=== PATIENT | female | born 1975 | race African-American/Black ===

== ENCOUNTER → 2019-05-20 | Outpatient (CLI) | payer OTHER, SELFPAY ==
[2019-05-26 16:34] LABS: Chlamydia By Nucleic Acid AMP Negative; Gonococcus By Nucleic Acid AMP Negative
== END | disposition home or self-care (01) ==
LOC: LABSPEC 16:04
PROVIDERS: Referring Provider Advanced Practice Midwife; Visit Provider Advanced Practice Midwife
DX: Z34.81 Encounter for supervision of other normal pregnancy, first trimester (principal); Z11.3 Encounter for screening for infections with a predominantly sexual mode of transmission
CPT/HCPCS: 87491; 87591; 87623; 87624; 88175; G0145

== ENCOUNTER 2020-04-22 14:33 | Emergency (ER) | payer BC, SELFPAY ==
[2020-04-22 14:38] VITALS: BP 122/81; PULSE 93; RESP 24; TEMP 37.2; O2SAT 100; BMI 21.7
[2020-04-22 14:48] VITALS: BP 130/92; PULSE 73; RESP 12; O2SAT 100
--- NOTE | 2020-04-22 15:01 | US_ITS ---
STUDY: FIRST TRIMESTER OBSTETRICAL ULTRASOUND REASON FOR EXAM: Female, 45 years old bleeding and cramping with -- HCG-2449 -- LMP-01/10/20 LMP: 01/09/2020 TECHNIQUE: Transabdominal and Transvaginal TECHNICAL QUALITY: Adequate. PRIOR ULTRASOUND: None. FINDINGS: There is no demonstrated intrauterine gestational sac. The uterus measures 13.9 x 8.1 x 7.6 cm.. There are multiple uterine fibroids. Diffuse thickening and heterogeneity of the endometrial complex measures 2.6 cm without a focal discrete mass. The cervix is closed. The right ovary measures 2.8 x 3.1 x 1.6 cm. There is no right ovarian cyst. There is no visualized right adnexal mass or complex lesion. The left ovary measures 3.2 x 2.4 x 2.7 cm.. Dominant follicle or small cyst of the left ovary measures 1.2 cm. There is no visualized left adnexal mass or complex lesion. There is no fluid in the cul de sac. US/Transvaginal w/Preg US IMPRESSION: 1. NO intrauterine identified. 2. Diffuse endometrial complex thickening. 3. Multiple uterine fibroids, some of which partially calcified. Electronically Signed: Horacio Shahid MD (Brooks) at 17:08 EST , Service support ,
[2020-04-22 15:09] LABS: Absolute Lymphocyte Count 1.77 X10^3/uL (0.83-4.51); Absolute Neutrophil Count 3.2 X10^3/uL (2.0-7.7); Basophil# 0.01 X10^3/uL; Basophil% 0.2 % (0-1); Eosinophil# 0.07 X10^3/uL; Eosinophils% 1.3 % (0-5); Hematocrit 39.2 % (37-47); Hemoglobin 13.3 g/dL (12.0-15.0); Lymphocyte # 1.77 X10^3/ul (4.0); Lymphocyte % 32.6 % (19-41); Mean Corp Hgb Conc 33.9 g/dL (32-36); Mean Corpuscular Hgb 32.1 pg (27.0-32.0); Mean Corpuscular Volume 94.7 fL (81-99); Mean Platelet Vol. 10.4 fl (6.2-12.0); Monocyte# 0.39 X10^3/uL; Monocyte% 7.2 % (0-10); NRBC Flagged by Analyzer 0 % (0-5); Neutrophil # 3.18 X10^3/uL (2.7-7.7); Neutrophil % 58.5 % (47-70); Platelet Count 258 K/mm3 (150-450); RBC Distribution Width CV 13.1 % (11.6-14.6); RBC Distribution Width SD 44.6 fl (35.1-43.9); Red Blood Count 4.14 M/mm3 (4.2-5.4); White Blood Count 5.4 K/mm3 (4.4-11.0)
[2020-04-22] MEDS: 0.9% Normal Saline 1,000 ML 1000 ML IV (15:11)
--- NOTE | 2020-04-22 15:36 | ED.DCSUM_ITS ---
- ER Visit Summary Date of Service: 04/22/20 Chief Complaint: Vaginal bleeding History of Present Illness: The patient is a 45 F who presents with vaginal bleeding that began today. Patient states she started having some cramping last night. Patient states she is approximately 16 weeks . Patient admits to some brown vaginal discharge. Patient is 3 para 1 with 1 spontaneous in the past. Patient states her pain is localized to her lower abdomen. Patient denies passing any tissue or clots. Patient denies any fevers or chills. Patient states she did have nausea and vomiting during her first trimester but has not had any nausea or vomiting since then. Patient Physical Examination: Vital signs are stable except for mild tachypnea of 24. Patient is afebrile. Oral mucosa is pink and moist. Neck is supple. Trachea is midline. There is no JVD. Heart was regular rate and rhythm. Lungs were clear and equal bilaterally. Abdomen is soft. Bowel sounds are normal. There is lower abdominal tenderness. There is no rebound or guarding noted. Pelvic exam showed large amount of bleeding. There were no masses. There is no tissue noted. Cranial nerves II through XII are intact. There are no focal motor or sensory deficits noted. Test Results: CBC was normal. Urinalysis shows occult blood of 250 with greater than 100 red blood cells. There is no evidence of urinary tract infection. Quantitative hCG was 2449. Transvaginal ultrasound was obtained. There is no intrauterine identified. There is no adnexal mass or complex lesion noted. There is diffuse endometrial thickening and multiple uterine fibroids. These were interpreted by the radiologist and reviewed by myself. Emergency Department Course and Treatment: Patient was given IV fluids and Dilaudid here. Patient is feeling better on reevaluation. Patient is still having some cramping. Patient was given Zofran. Patient wants to go home. Patient was advised of her findings. Patient was instructed to follow-up with her ETCHER HAND in 1 to 2 days for further evaluation. Patient was given a prescription for a short course of [place]. Patient understood and was agreeable with the plan. All questions were answered. Disposition: Discharge home Impression: 1. Spontaneous This note was generated with [employer] software. It may contain incorrect words, spelling, and punctuation that were not noted in review of the chart prior to signing ED Disposition - Plan for ED Patient: Disposition: Home or Assisted Living Diagnosis: Spontaneous Instructions: ED MISCARRIAGE Completed Prescriptions: Hydrocodone Bitart/Apap 5-325 [[place] 5MG-325MG] 1 tab PO Q4H PRN PRN 2 Days #10 tab PRN Reason: Pain Prescription Printed Referrals: Jan Mejia MD [STAFF PHYSICIAN] - 1-2 Days if not improving
[2020-04-22 15:53] LABS: hCG Titer Quant., Serum 2449 mIU/mL (1-3)
[2020-04-22 16:02] LABS: Bacteria 0 SEEN /hpf (None Seen); Mucous, Urine 0 SEEN /hpf (<or=2+)
[2020-04-22 16:04] LABS: Color, Urine Red (Yellow); Glucose, Dipstick Normal (Normal); Ketone-Dipstick 5 mg/dl (Negative); Leukocyte Esterase-Dipstick 100 /ul (Negative); Nitrite-Dipstick Negative (Negative); Occult Blood-Urine 250 /ul (Negative); Protein-Dipstick 100 mg/dl (Negative); Specific Gravity, Urine 1.015 (1.002-1.030); Urine Bilirubin Dipstick Negative (Negative); Urine Clarity Cloudy (Clear); Urine Urobilinogen Normal (Normal)
[2020-04-22 16:20] LABS: Red Blood Cells-Urine > 100 SEEN /hpf (0-5); Squamous Epithelial Cells - UA 0-5 SEEN /hpf (5-10); White Blood Cells 5-10 SEEN /hpf (0-5)
[2020-04-22 16:21] LABS: Amorphous Sediment 1+ PHOS
[2020-04-22 16:48] VITALS: BP 113/79; PULSE 74; RESP 18; O2SAT 98
[2020-04-22 18:02] VITALS: BP 125/85; PULSE 71; RESP 18; O2SAT 98
== END 2020-04-22 18:13 | disposition home or self-care (01) ==
PROVIDERS: Emergency Provider Emergency Medicine
DX: O03.9 Complete or unspecified spontaneous abortion without complication (principal)
CPT/HCPCS: 76817; 81001; 84702; 85025; J7030; A4216; J2405

== ENCOUNTER 2020-04-22 22:25 | Observation (INO) | payer BC, SELFPAY ==
[2020-04-22 14:38] VITALS: BMI 21.7
[2020-04-22 22:25] VITALS: BP 118/82; PULSE 85; RESP 18; TEMP 36.6; O2SAT 96; BMI 21.4
--- NOTE | 2020-04-22 22:34 | ED.DCSUM_ITS ---
History of Present Illness Chief Complaint: Syncope Informant: Patient, EMS Pain: Pelvic Pain Onset: Today Context: Gradual Onset Timing: Waxes and wanes Quality: Cramping Location: Suprapubic Current Severity: Severe Maximum Severity: Severe Worsened by: - - nothing Relieved by: - - eases up after vaginal bleeding Issue: Vaginal bleeding Onset: Today Context: Gradual Onset Current Severity: Similar to period Maximum Severity: Heavy - With large clots Associated Symptoms: Negative for: Dysuria, Frequency, Urgency Last known menstrual period: 01/10/2020 P: 1 Ab: 1 - not including current Narrative: Patient seen here earlier for similar symptoms, she states she has been approximately 16 weeks and started having bleeding and severe cramping today, she had an ultrasound that showed an empty uterus on her exam showed a closed os, without any signs of an ectopic . She felt better and went home, but she states that the bleeding has continued to be heavy and her leather craftsman mping severe, she has had several near syncopal episodes. EMS said that her stated that she had had some syncopal episodes, but the patient denies losing consciousness. She states while in the bathroom she felt dizzy to the point of coming close to passing out several times but then went into her bedroom and went to sleep because she is very tired given the events of today combined with the fact that she has a 3-year-old at home who is keeping her up. She states now, the bleeding seems to be tapering, but she is still having fairly severe cramps. She was nauseated and vomiting once earlier, she denies having any nausea now. The pain is nonlateralizing, throughout her pelvis. She denies any new symptoms other than the above. She had a miscarriage in May of last year. She sees Dr. Mejia for obstetrics, she has yet to see him during this and had an appointment made that is coming up. EMS states upon initial evaluation tonight, her systolic blood pressure was 90. They started an IV and gave her less than half of a liter of IV fluid prior to getting to the hospital and her pressure came up to the 120s. - Past Medical History (1) Uterine fibroids affecting Status: Chronic Past Medical History - Allergies and Home Meds Allergies/Adverse Reactions: Allergies morphine Allergy (Verified 04/22/20 22:29) Bryan Doctors: CONCETTA Mejia Past Medical History: None Lives: With Family Smoking Status: Never smoker Review of Systems General: Reports: Malaise, - - lightheaded off and on to the point of near- syncope. Denies: Chills, Fever, Sweats Eyes: Denies: Visual changes - bilaterally, Diplopia ENT: Denies: Bilateral ear pain, Rhinorrhea, Sore throat Cardiovascular: Denies: Chest pain, Palpitations, Heart racing Respiratory: Denies: Dyspnea, Cough, Dyspnea on exertion Gastrointestinal: Reports: Abdominal pain, Nausea, Vomiting. Denies: Diarrhea, Melena, Hematochezia Genitourinary: Reports: - - Vaginal bleeding. See HPI.. Denies: Dysuria, Hematuria, Frequency Musculoskeletal: Denies: Back pain, Swelling, Extremity Pain Skin: Denies: Rash, Wounds Neurological: Denies: Headache, Weakness, Numbness Physical Exam Vital Signs/Narrative: Vital Signs Temp Pulse Resp BP Pulse Ox 04/22/20 22:25 98 F 85 18 118/82 H 96 Inital Vital Signs reviewed: Yes General: Well nourished, Well developed, - - Keenly alert, moaning in pain Head: Normocephalic, Atraumatic Eyes: Perrl, EOMI ENT: Moist mucous membranes, No rhinorrhea Neck: Supple, Nontender Cardiovascular: Regular rate, Regular rhythm, No murmurs. Negative for: Tachycardia Respiratory: No distress, CTA bilaterally, Chest nontender Abdomen: Soft, Normal bowel sounds, No masses, Tender - Throughout pelvis only nonlateralizing. Negative for: Nondistended - Mildly distended lower abdomen consistent with early second trimester : Speculum exam: - - Patient refuses pelvic and transvaginal ultrasound Back: Nontender, Normal Inspection. Negative for: CVA tenderness Extremities: Nontender, No edema Skin: Normal color, No rash, No Trauma Neurological: Alert, Oriented x3, Cranial nerves II-XII grossly intact, Normal Strength, Normal Sensation, Normal Gait Psychological: Tearful - And anxious Diagnostic/Tx/Re-eval Laboratory Results 04/22/20 04/22/20 04/22/20 22:35 22:35 22:35 WBC 7.7 RBC 3.09 L Hgb 9.9 L Hct 29.4 L MCV 95.1 MCH 32.0 MCHC 33.7 RDW Std Deviation 43.8 RDW Coeff of Renata 12.7 Plt Count 187 MPV 9.6 Immature Gran % (Auto) 0.300 Neut % (Auto) 81.6 H Lymph % (Auto) 14.5 L [place] % (Auto) 3.4 Eos % (Auto) 0.1 Baso % (Auto) 0.1 Absolute Neuts (auto) 6.3 Absolute Lymphs (auto) 1.12 Nucleated RBC % 0 Sodium 139 Potassium 4.5 Chloride 109 H Carbon Dioxide 24.0 Anion Gap 6 BUN 9 Creatinine 0.68 Estim Creat Clear Calc 80.50 Est GFR (MDRD) Af Amer 121 Est GFR (MDRD) Non-Af 100 BUN/Creatinine Ratio 13.2 Glucose 137 H Calcium 8.3 L HCG, Quant 1349 H - Rhythm Strip Rhythm Strip: Sinus Rhythm Rate: 74 Ectopy: None - EKG Initial EKG Interpretation: Sinus Rhythm, No Acute Injury Pattern, Non-Specific ST Changes - T wave flattening inferiorly and laterally - Medical Decision/Diagnostic Studies Patient was treated with IV fluids, IV fentanyl for pain, and she ended up requesting something for nausea so she was given Zofran. She appears better and feels better on reevaluation. She refused pelvic exam and repeat ultrasound, the latter is not required at this time since she had one earlier, it showed heterogeneous material in the uterus without a live present and lack of findings to support an ectopic . Her dropping hCG quantitative supports this, it was around 2400 earlier. Her hemoglobin is down over 3 g, making her hypotensive and explaining her symptoms including near syncopal episodes. Given this I think it is reasonable to observe her overnight, Dr. Diamond is in agreement. He request that Methergine be given which was done here in the ER. ED Disposition - Plan for ED Patient: Disposition: Acute Care Hospital [facility] Diagnosis: Near syncope, Acute blood loss anemia, Vaginal hemorrhage, Complete , Transient hypotension
--- NOTE | 2020-04-22 22:37 | EKG12_ITS ---
Test Reason : CP Blood Pressure : / mmHG Vent. Rate : 074 BPM Atrial Rate : 074 BPM P-R Int : 150 ms QRS Dur : 070 ms QT Int : 400 ms P-R-T Axes : 059 065 049 degrees QTc Int : 444 ms Normal sinus rhythm Nonspecific T wave abnormality Abnormal ECG Confirmed by CHELSIE MEDEROS, GRISEL ([id number]), website/blog editor VALERIY MARTIN ([id number]) on 04/23/2020 10:39:27 AM Referred By: BB Confirmed By:GRISEL HOLGUIN MD
[2020-04-22] MEDS: 0.9% Normal Saline 1,000 ML 1000 ML IV (22:38)
[2020-04-22] MEDS: Ondansetron 4 MG/2 ML Vial IV (22:39)
[2020-04-22] MEDS: fentaNYL 100 MCG/2 ML Ampul 50 MCG IV (22:39)
[2020-04-22 22:53] LABS: Absolute Lymphocyte Count 1.12 X10^3/uL (0.83-4.51); Absolute Neutrophil Count 6.3 X10^3/uL (2.0-7.7); Basophil# 0.01 X10^3/uL; Basophil% 0.1 % (0-1); Eosinophil# 0.01 X10^3/uL; Eosinophils% 0.1 % (0-5); Hematocrit 29.4 % (37-47); Hemoglobin 9.9 g/dL (12.0-15.0); Lymphocyte # 1.12 X10^3/ul (4.0); Lymphocyte % 14.5 % (19-41); Mean Corp Hgb Conc 33.7 g/dL (32-36); Mean Corpuscular Volume 95.1 fL (81-99); Mean Platelet Vol. 9.6 fl (6.2-12.0); Monocyte# 0.26 X10^3/uL; Monocyte% 3.4 % (0-10); NRBC Flagged by Analyzer 0 % (0-5); Neutrophil % 81.6 % (47-70); Platelet Count 187 K/mm3 (150-450); RBC Distribution Width CV 12.7 % (11.6-14.6); RBC Distribution Width SD 43.8 fl (35.1-43.9); Red Blood Count 3.09 M/mm3 (4.2-5.4); White Blood Count 7.7 K/mm3 (4.4-11.0)
[2020-04-22 23:00] VITALS: BP 98/72; PULSE 71; RESP 15; O2SAT 100
[2020-04-22 23:03] LABS: Anion Gap 6 (5-15); BUN 9 mg/dL (7-18); BUN/Creat Ratio 13.2 RATIO (10-20); Calcium,Total 8.3 mg/dL (8.5-10.1); Chloride 109 mmol/L (98-107); Creatinine, Serum 0.68 mg/dL (0.55-1.02); EST Glomerular Filtration Rate 100 mL/min (>60); Est Glom Filt Rate - Afr Amer 121 mL/min (>60); Glucose 137 mg/dL (74-106); Potassium 4.5 mmol/L (3.5-5.1); Sodium Level 139 mmol/L (136-145)
[2020-04-22 23:39] LABS: hCG Titer Quant., Serum 1349 mIU/mL (1-3)
[2020-04-22] MEDS: 0.9% Normal Saline 1,000 ML 100 ML IV (23:51)
[2020-04-23 00:13] VITALS: BP 99/68; PULSE 89; RESP 16; TEMP 36.9; O2SAT 100
[2020-04-23] MEDS: Metoclopramide 10 MG/2 ML Vial 5 MG IV (00:45)
[2020-04-23 01:12] VITALS: BP 101/56; PULSE 68; RESP 16; TEMP 37.2; O2SAT 97
[2020-04-23 01:13] VITALS: PULSE 70; O2SAT 97
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
[2020-04-23 02:04] VITALS: BMI 21.2
--- NOTE | 2020-04-23 02:23 | NURSING ---
Dr Diamond updated on patient arrival to unit from ER. Assessment completed, Fundus firm 2 below, bleeding minimal. Nausea now resolved, Kpad applied to abdomen for mild cramping. Order received to observe patient at this time, Dr Diamond will be in to assess patient this morning. Patient to remain NPO, prn Zofran and tylenol ordered.
--- NOTE | 2020-04-23 03:18 | NURSING ---
Pt verbalizes understanding that she needs to remain NPO until jmiller at bedside to complete his assessment.
[2020-04-23 05:48] VITALS: BP 121/67; PULSE 82; PULSE 92; RESP 16; TEMP 37.4; O2SAT 100
--- NOTE | 2020-04-23 05:52 | HP.PCM_ITS ---
History and Physical Chief complaint: Vaginal bleeding History of present illness: Is a 45-year-old G3, P1 at 15 weeks by LMP with but vaginal bleeding with SAB. Patient originally at home with vaginal bleeding status post fall. Bleeding increased and patient arrived to ER discharge home. Arrived with dizziness and weakness. Also with uterine cramping. Products of conception passed at home and in ER. Denies headache, chest pain, shortness of breath. G1 history: G1: Primary failure to progress G2: SAB 8 weeks G3: Current Past medical history: None Past surgical history: Medications: vitamin Allergies: Morphine (rash) Social history: Denies smoking, alcohol use or drug use Review of systems: Besides the above pertinent positives a full review of systems was performed found to be negative Physical exam: Vital Signs Temp Pulse Resp BP BP Pulse Ox 04/23/20 05:48 99.3 F H 82 16 121/67 H 121/67 H 100 04/23/20 01:13 70 97 04/23/20 01:12 99 F 68 16 101/56 L 101/56 L 97 04/23/20 00:13 98.4 F 89 16 99/68 100 04/22/20 23:00 71 15 98/72 100 04/22/20 22:25 98 F 85 18 118/82 H 96 General: Normal appearing no acute distress HEENT: Normocephalic atraumatic no cervical lymphadenopathy Cardiac: Regular rate and rhythm no murmurs rubs gallops Respiratory: Clear to auscultation bilaterally no wheezes rales or crackles Abdomen: Soft nontender nondistended. Positive bowel sounds. Negative for rebound tenderness or guarding Extremities: No peripheral edema normal peripheral pulses Mom's Problem List Problem Status Onset Code Uterine fibroids affecting Chronic O34.10, D25.9 Near syncope Acute R55 Acute blood loss anemia Acute D62 Vaginal hemorrhage Acute N93.9 Complete Acute O03.9 Transient hypotension Acute I95.9 Mom's Labs & Results 04/22/20 04/22/20 04/22/20 22:35 22:35 22:35 WBC 7.7 RBC 3.09 L Hgb 9.9 L Hct 29.4 L MCV 95.1 MCH 32.0 MCHC 33.7 RDW Std Deviation 43.8 RDW Coeff of Renata 12.7 Plt Count 187 MPV 9.6 Immature Gran % (Auto) 0.300 Neut % (Auto) 81.6 H Lymph % (Auto) 14.5 L [place] % (Auto) 3.4 Eos % (Auto) 0.1 Baso % (Auto) 0.1 Absolute Neuts (auto) 6.3 Absolute Lymphs (auto) 1.12 Nucleated RBC % 0 Sodium 139 Potassium 4.5 Chloride 109 H Carbon Dioxide 24.0 Anion Gap 6 BUN 9 Creatinine 0.68 Estim Creat Clear Calc 80.50 Est GFR (MDRD) Af Amer 121 Est GFR (MDRD) Non-Af 100 BUN/Creatinine Ratio 13.2 Glucose 137 H Calcium 8.3 L HCG, Quant 1349 H Blood Type Antibody Screen 04/22/20 22:35 WBC RBC Hgb Hct MCV MCH MCHC RDW Std Deviation RDW Coeff of Renata Plt Count MPV Immature Gran % (Auto) Neut % (Auto) Lymph % (Auto) [place] % (Auto) Eos % (Auto) Baso % (Auto) Absolute Neuts (auto) Absolute Lymphs (auto) Nucleated RBC % Sodium Potassium Chloride Carbon Dioxide Anion Gap BUN Creatinine Estim Creat Clear Calc Est GFR (MDRD) Af Amer Est GFR (MDRD) Non-Af BUN/Creatinine Ratio Glucose Calcium HCG, Quant Blood Type O POSITIVE Antibody Screen NEGATIVE Assessment and plan 45-year-old G3, P1 at 15 weeks with SAB for observation with vaginal bleeding. Observation overnight with now minimal to no bleeding. Given p.o. Methergine in ER. Vital signs stable, patient asymptomatic no dizziness or weakness at this time. Overall pain well controlled. Patient desires to discharge home, based on overall stability okay to discharge home today. Discussed precautions, discussed abnormal versus normal vaginal bleeding after SAB.
--- NOTE | 2020-04-23 05:57 | PCM.DC ---
- Discharge Diagnoses Current Active Problems: Current Active and Chronic Problems Uterine fibroids affecting (Chronic) Near syncope (Acute) Acute blood loss anemia (Acute) Vaginal hemorrhage (Acute) Complete (Acute) Transient hypotension (Acute) You will use the following diet at home:: No restrictions Discharge Activity: Return to Normal Activity, May Drive, May Shower May resume sexual activity in: 2 weeks Weight Bearing Status: Weight bearing as tolerated Call your doctor if your incision/area has: Sudden Increased Bleeding, Foul Smelling Discharge Call your doctor if you observe: Fever of 101 or Higher, Shortness of breath, Chest pain Allergies/Adverse Reactions: Allergies morphine Allergy (Verified 04/23/20 02:05) Hives Medications to take at Discharge Hydrocodone Bitart/Apap 5-325 [[place] 5MG-325MG] 1 tab PO Q4H PRN PRN 2 Days #10 tab 04/22/20 Vits [Prenatabs FA] 1 tab PO DAILY 04/22/20 Ondansetron HCl [Zofran] 4 mg PO Q4H PRN PRN #30 tab 04/23/20 The following prescriptions were given: Ondansetron HCl [Zofran] 4 mg PO Q4H PRN PRN #30 tab PRN Reason: Nausea Transmission Status: Pending to [id number] Primary Care Physician: Care Physician,No Primary [Primary Care Provider] - Test Results: Test results from this visit will be discussed in further detail at your follow-up appointment, if applicable. Please Follow Up With: Chriss Diamond MD When: 2 weeks
== END 2020-04-23 06:30 | disposition home or self-care (01) ==
LOC: ED 23:30 → WP 04-23 01:55
PROVIDERS: Admitting Provider Obstetrics & Gynecology; Emergency Provider Emergency Medicine; Visit Provider Obstetrics & Gynecology
DX: O03.6 Delayed or excessive hemorrhage following complete or unspecified spontaneous abortion (principal); D62 Acute posthemorrhagic anemia; Z3A.16 16 weeks gestation of pregnancy
CPT/HCPCS: 96374; 96375 ×2; 76817; 80048; 81001; 84702; 85025; 86850; 86900; 86901; 93005; 96360; 96361; 99283; 99285; J7030; A4216; J2405

== ENCOUNTER → 2020-05-22 10:43 | Outpatient (CLI) | payer BC, SELFPAY ==
[2020-04-23 02:04] VITALS: BMI 21.2
[2020-05-22 12:15] LABS: hCG Titer Quant., Serum 20 mIU/mL (1-3)
== END ==
PROVIDERS: Visit Provider Obstetrics & Gynecology
DX: O03.9 Complete or unspecified spontaneous abortion without complication (principal)
CPT/HCPCS: 36415; 84702

== ENCOUNTER → 2020-06-07 10:37 | Outpatient (CLI) | payer BC, SELFPAY ==
[2020-06-07 14:01] LABS: hCG Titer Quant., Serum 5 mIU/mL (1-3)
== END ==
PROVIDERS: Visit Provider Obstetrics & Gynecology
DX: O20.0 Threatened abortion (principal); Z3A.00 Weeks of gestation of pregnancy not specified
CPT/HCPCS: 36415; 84702

== ENCOUNTER → 2020-06-18 08:43 | Outpatient (CLI) | payer BC, SELFPAY ==
[2020-06-18 09:48] LABS: hCG Titer Quant., Serum 2 mIU/mL (1-3)
== END ==
PROVIDERS: Visit Provider Obstetrics & Gynecology
DX: O20.0 Threatened abortion (principal); Z3A.00 Weeks of gestation of pregnancy not specified
CPT/HCPCS: 36415; 84702

== ENCOUNTER → 2021-02-07 10:44 | Outpatient (CLI) | payer BC, SELFPAY ==
[2021-02-13 15:01] LABS: HPV Reflexed? NOT INDICATED
== END ==
PROVIDERS: Visit Provider Obstetrics & Gynecology
DX: Z12.4 Encounter for screening for malignant neoplasm of cervix (principal)
CPT/HCPCS: 88175; G0145

== ENCOUNTER → 2021-03-11 07:35 | Outpatient (CLI) | payer BC, SELFPAY ==
--- NOTE | 2021-03-11 07:38 | BI_ITS ---
MAMMOGRAPHY - BILATERAL SCREENING REASON FOR EXAM: Female, 46 years old. Routine annual screening examination. PERTINENT HISTORY: Non-contributory. TECHNIQUE: Digital bilateral breast ulices (3D mammographic acquisition) in the CC and MLO projections. 2-D mediolateral oblique (MLO) and craniocaudad (CC) views of both breasts were obtained. CAD: Full Field Digital Mammography with Computer Added Detection was performed. COMPARISON: None. Baseline examination. FINDINGS: Breast Composition: The breasts are extremely dense, which lowers the sensitivity of mammography. There are no dominant masses or suspicious calcifications. No other significant abnormalities are identified. BI/SCRN MAMM (CAD)W/ULICES BILAT IMPRESSION: Negative screening mammogram. Yearly followup mammogram recommended. (A) ASSESSMENT CATEGORY: BIRADS Category 1: Negative. A letter regarding these results will be sent to the patient by the facility within 30 days. Approximately 10% of breast cancers are not detected by mammography. A normal mammogram should not delay biopsy of a clinically suspicious abnormality. [id number] Electronically Signed: Matthew Maldonado MD at 10:44 EST , Service support ,
== END ==
PROVIDERS: Referring Provider Obstetrics & Gynecology; Visit Provider Obstetrics & Gynecology
DX: Z12.31 Encounter for screening mammogram for malignant neoplasm of breast (principal)
CPT/HCPCS: 77063; 77067

== ENCOUNTER → 2021-03-29 | Outpatient (CLI) | payer BC, SELFPAY | END | disposition home or self-care (01) | LOC: LABSPEC 08:15 | PROVIDERS: Visit Provider Physician Assistant Surgical | DX: Z11.52 Encounter for screening for COVID-19 (principal) | CPT/HCPCS: 87635; U0005; U0003 ==

== ENCOUNTER → 2022-08-28 | Outpatient (CLI) | payer OTHER, MEDICAID, SELFPAY ==
[2022-08-28 13:08] LABS: Prolactin 8.6 ng/mL
[2022-08-28 13:16] LABS: hCG Titer Quant., Serum < 1 mIU/mL (1-3)
== END | disposition home or self-care (01) ==
PROVIDERS: Visit Provider Nurse Practitioner Women's Health
DX: Z01.419 Encounter for gynecological examination (general) (routine) without abnormal findings (principal); N64.4 Mastodynia
CPT/HCPCS: 36415; 84146; 84702